=== PATIENT | female | born 1950 | race Caucasian/White ===

== ENCOUNTER 2023-04-17 12:15 | Emergency (ER) | payer MEDICARE, SELFPAY ==
[2023-04-17] VITALS (17 sets, daily range): BP systolic 124–164; BP diastolic 75–114; PULSE 76–144; RESP 16–23; TEMP 36.4; O2SAT 94–98; BMI 22.2
--- NOTE | 2023-04-17 12:25 | DI.RAD.S_ITS ---
PROCEDURE: XR CHEST 1V INDICATIONS: chest pain TECHNIQUE: One view of the chest was acquired. COMPARISON: None. FINDINGS: Surgical changes and devices: None. Lungs and pleura: Lungs are clear. No pleural effusions or pneumothorax. Mediastinum: Mediastinal contours appear normal. Heart size is normal. Tortuous aorta. Bones and chest wall: No suspicious bony lesions. Overlying soft tissues appear unremarkable. IMPRESSION: No acute radiographic abnormality on this single-view chest radiograph. Dictated by: Manpreet Ayala M.D. on 04/17/2023 at 12:55 Approved by: Manpreet Ayala M.D. on 04/17/2023 at 12:56
[2023-04-17 12:52] LABS: Add Manual Diff / Slide Review NO; Basophils Absolute Auto 0 /uL (0-100); Basophils Percent Auto 0.6 % (0-2); Eosinophils Absolute Auto 100 /uL (0-450); Eosinophils Percent Auto 1.5 % (2-4); Hematocrit 44.9 % (36-46); Hemoglobin 15.1 g/dL (12.0-16.0); Lymphocytes Absolute Auto 2100 /uL (1100-4500); Lymphocytes Percent Auto 28.7 % (25-40); Mean Corpuscular HGB Conc 33.6 % (30-36); Mean Corpuscular Volume 89.3 fL (80-100); Monocytes Absolute Auto 500 /uL (0-900); Monocytes Percent Auto 6.8 % (3-14); Neutrophils Absolute Auto 4500 /uL (1500-7000); Neutrophils Percent Auto 62.4 % (50-75); Platelet Count 228 X10^3/uL (150-400); Red Blood Cell Count 5.03 X10^6/uL (4.0-5.2); Red Cell Distribution Width 13.4 % (11.6-14.8); White Blood Cell Count 7.2 X10^3/uL (4.5-11.0)
[2023-04-17 13:03] LABS: Prothrombin Time 11.4 SECONDS (10.1-12.7)
[2023-04-17 13:05] LABS: PTT Partial Thromboplastin Tim 33 SECONDS (26-36)
[2023-04-17 13:16] LABS: Alanine Aminotransferase 21 IU/L (<35); Albumin 4.5 g/dL (3.5-5.0); Albumin Globulin Ratio 1.4 (1.0-2.8); Alkaline Phosphatase 83 U/L (38-126); Aspartate Aminotransferase 28 IU/L (14-36); BUN Creatinine Ratio 25.9 (6-22); Bilirubin Total 0.6 mg/dL (0.2-1.3); Blood Urea Nitrogen 22 mg/dL (7-17); Calcium 9.7 mg/dL (8.4-10.2); Carbon Dioxide 26 mmol/L (22-32); Chloride 104 mmol/L (98-107); Creatine Kinase 77 U/L (30-135); Estimated Glomerular Filt Rate > 60 mL/min (>60); Globulin 3.2 g/dL (1.7-4.1); Glucose 152 mg/dL (80-110); HEMOLYSIS < 15 (0-50); Lipase 55 U/L (23-300); Magnesium 2.4 mg/dL (1.6-2.3); Potassium 4.3 mmol/L (3.4-5.1); Sodium 139 mmol/L (137-145); Total Protein 7.7 g/dL (6.3-8.2)
[2023-04-17 13:28] LABS: Troponin I < 0.012 ng/mL (0.01-0.034)
--- NOTE | 2023-04-17 13:32 | ED_ITS ---
HPI - Arrhythmia/Palpitations General Chief Complaint: Arrhythmia/Palpitations Stated Complaint: Irregular heartbeat Time Seen by Provider: 04/17/23 13:30 Source: patient Mode of arrival: Ambulatory Related Data Allergies Allergy/AdvReac Type Severity Reaction Status Date / Time lisinopril [LISINOPRIL] Allergy Mild COUGH Unverified 11/19/17 12:31 Patient History Surgical History (Updated 12/09/17 @ 06:06 by Conversion Provider) Status post tubal ligation Social History Smoking Status: Never smoker Smoking Status: Never smoker alcohol intake frequency: a few times a week Substance Use Type: does not use Exam Initial Vital Signs Initial Vital Signs: Vital Signs Temperature 97.5 F L 04/17/23 12:22 Pulse Rate 77 04/17/23 12:22 Respiratory Rate 18 04/17/23 12:22 Blood Pressure 124/76 04/17/23 12:22 Pulse Oximetry 97 04/17/23 12:22 Oxygen Delivery Method Room Air 04/17/23 12:22 Course Orders Ordered: ED Orders 04/17/23 12:25 XR chest 1V Stat 04/17/23 12:35 Complete Blood Count AUTO DIFF Stat Comprehensive Metabolic Panel Stat Lipase Stat Magnesium Stat PTT Partial Thromboplastin Caden Stat Prothrombin Time INR Stat Troponin & CK Cardiac Panel Stat 04/17/23 12:50 EKG-12 Lead Stat Discontinued Medications Aspirin (Aspirin 81 Mg Chew Tab) 324 mg PO NOW ONE Stop: 04/17/23 12:26 Last Admin: 04/17/23 12:33 Dose: Not Given Documented By: KB Vital Signs Vital signs: Vital Signs - 8 hr 04/17/23 12:22 04/17/23 13:10 Temperature 97.5 F L Pulse Rate 77 134 H Respiratory Rate 18 16 Blood Pressure 124/76 134/89 Pulse Oximetry 97 98 Oxygen Delivery Method Room Air Room Air MDM - Arrhythmia/Palpitations Lab Data 04/17/23 12:35 04/17/23 12:35 Labs: Lab Results 04/17/23 04/17/23 04/17/23 Range/Units 12:35 12:35 12:35 WBC 7.2 (4.5-11.0) X10^3/uL RBC 5.03 (4.0-5.2) X10^6/uL Hgb 15.1 (12.0-16.0) g/dL Hct 44.9 (36-46) % MCV 89.3 (80-100) fL MCH 30.0 (26-34) PG MCHC 33.6 (30-36) % RDW 13.4 (11.6-14.8) % Plt Count 228 (150-400) X10^3/uL Neut % (Auto) 62.4 (50-75) % Lymph % (Auto) 28.7 (25-40) % [place] % (Auto) 6.8 (3-14) % Eos % (Auto) 1.5 L (2-4) % Baso % (Auto) 0.6 (0-2) % Neut # (Auto) 4500 (0486-8790) /uL Lymph # (Auto) 2100 (9473-3408) /uL [place] # (Auto) 500 (0-900) /uL Eos # (Auto) 100 (0-450) /uL Baso # (Auto) 0 (0-100) /uL PT 11.4 (10.1-12.7) SECONDS INR 1.0 (0.9-1.3) APTT 33 (26-36) SECONDS Sodium 139 (137-145) mmol/L Potassium 4.3 (3.4-5.1) mmol/L Chloride 104 (98-107) mmol/L Carbon Dioxide 26 (22-32) mmol/L BUN 22 H (7-17) mg/dL Creatinine 0.85 (0.52-1.04) mg/dL Estimated GFR > 60 (>60) mL/min BUN/Creatinine Ratio 25.9 H (6-22) Glucose 152 H (80-110) mg/dL Calcium 9.7 (8.4-10.2) mg/dL Magnesium 2.4 H (1.6-2.3) mg/dL Total Bilirubin 0.6 (0.2-1.3) mg/dL AST 28 (14-36) IU/L ALT 21 (<35) IU/L Alkaline Phosphatase 83 (38-126) U/L Total Creatine Kinase 77 (30-135) U/L Troponin I < 0.012 (0.01-0.034) ng/mL Total Protein 7.7 (6.3-8.2) g/dL Albumin 4.5 (3.5-5.0) g/dL Globulin 3.2 (1.7-4.1) g/dL Albumin/Globulin Ratio 1.4 (1.0-2.8) Lipase 55 (23-300) U/L Imaging Data Chest x-ray: Radiologist's Impresson: PROCEDURE:? XR CHEST 1V ? INDICATIONS:? chest pain ? TECHNIQUE:? One view of the chest was acquired.? ? COMPARISON:? None. ? FINDINGS:? ? Surgical changes and devices:? None.? ? Lungs and pleura:? Lungs are clear.? No pleural effusions or pneumothorax.? ? Mediastinum:? Mediastinal contours appear normal.? Heart size is normal.? Tortuous aorta. ? Bones and chest wall:? No suspicious bony lesions.? Overlying soft tissues appear unremarkable.? ? ? IMPRESSION:? No acute radiographic abnormality on this single-view chest radiograph.? ? Dictated by: Manpreet Ayala M.D. on 04/17/2023 at 12:55 ? ? Approved by: Manpreet Ayala M.D. on 04/17/2023 at 12:56 ?
--- NOTE | 2023-04-17 14:14 | ED.ARRPALP ---
HPI - Arrhythmia/Palpitations General Chief Complaint: Arrhythmia/Palpitations Stated Complaint: Irregular heartbeat Time Seen by Provider: 04/17/23 13:30 Source: patient Mode of arrival: Ambulatory Limitations: no limitations History of Present Illness HPI narrative: 73-year-old female with no daily medications who presents with complaint of irregular heartbeat. Patient states she sometimes feels that her heart rate is fast and irregular. She states it has been going on for possibly a year or longer she states she sometimes notices it more at nighttime. She states it is sort of noxious she is never followed it up. She would a physical today was found to be irregular and sent to the ER. She denies any chest pain no shortness of breath, no swelling in extremities, no syncope. No nausea no vomiting, no diarrhea constipation, no black bloody stools. Patient denies any dysuria urgency or frequency. States she does not take any daily medications. Remote history of tubal ligation. Has a remote history of being allergic to albuterol and lisinopril or having adverse reactions. No tobacco, she drinks a glass of wine nightly 5 times a week. No illicit, no recreational drugs. Patient's primary care is [facility]. Has never seen cardiology. Does have a brother with atrial fibrillation. Related Data Previous Rx's Medication Instructions Recorded dabigatran etexilate 150 mg 150 mg PO BID #60 caps 04/17/23 capsule (Pradaxa) diltiazem HCl 180 mg 180 mg PO DAILY #30 caps 04/17/23 capsule,extended release 24 hr (Cardizem CD) Allergies Allergy/AdvReac Type Severity Reaction Status Date / Time lisinopril [LISINOPRIL] Allergy Mild COUGH Verified 04/17/23 16:44 Review of Systems Review of Systems ROS Unobtainable: All systems reviewed & are unremarkable except as noted in HPI and below Patient History Surgical History Status post tubal ligation Social History Smoking Status: Never smoker Smoking Status: Never smoker alcohol intake frequency: a few times a week Substance Use Type: does not use Exam Narrative Exam Narrative: GENERAL: Alert and oriented x three, thin, well-appearing female in mild distress. HEENT: Head normocephalic, atraumatic, EOMI, pupils reactive, face symmetric, moist mucous membranes NECK: Supple, full range of motion CARDIOVASCULAR: Irregularly regular rate and rhythm without murmurs, rubs or gallops. No JVD. No swelling bilateral lower extremities. RESPIRATORY: Breath sounds equal bilaterally, no wheezes rales or rhonchi. No tachypnea or accessory muscle use. ABDOMEN: Soft, nontender. Normoactive bowel sounds all 4 quadrants. No guarding or rebound, rigidity, no mass : No CVA tenderness EXTREMITIES: Normal range of motion, no clubbing or edema. Neurovascularly intact NEUROLOGICAL: Cranial nerves II through XII grossly intact. Moving all extremities SKIN: Warm, dry, no petechiae, no rashes or lesions. Initial Vital Signs Initial Vital Signs: Vital Signs Temperature 97.5 F L 04/17/23 12:22 Pulse Rate 77 04/17/23 12:22 Respiratory Rate 18 04/17/23 12:22 Blood Pressure 124/76 04/17/23 12:22 Pulse Oximetry 97 04/17/23 12:22 Oxygen Delivery Method Room Air 04/17/23 12:22 Scores CHADS-VASc Congestive heart failure: no Hypertension: no Age 75 years or older: no Diabetes mellitus: no Stroke, TIA, or TE: no Vascular disease: no Age 65 to 74 years: yes Sex category (female): Female CHADS-VASc Score: 2 Course Orders Ordered: ED Orders 04/17/23 12:25 XR chest 1V Stat 04/17/23 12:35 BNP [NT-proBNP (BNP-Adult 18+)] Stat Complete Blood Count AUTO DIFF Stat Comprehensive Metabolic Panel Stat Lipase Stat Magnesium Stat PTT Partial Thromboplastin Caden Stat Prothrombin Time INR Stat TSH w/ Reflex to FT4 Stat Troponin & CK Cardiac Panel Stat 04/17/23 12:50 EKG-12 Lead Stat 04/17/23 15:42 EKG-12 Lead Stat Discontinued Medications Aspirin (Aspirin 81 Mg Chew Tab) 324 mg PO NOW ONE Stop: 04/17/23 12:26 Last Admin: 04/17/23 12:33 Dose: Not Given Documented By: JASON Dabigatran (Dabigatran 75 Mg Capsule) 150 mg PO NOW ONE Stop: 04/17/23 16:32 Last Admin: 04/17/23 16:44 Dose: 150 mg Documented By: JG Diltiazem HCl (Diltiazem 5 Mg/Ml Sdv) 10 mg IV NOW ONE Stop: 04/17/23 14:18 Last Admin: 04/17/23 14:32 Dose: 10 mg Documented By: JASON Diltiazem HCl (Diltiazem Cd 120 Mg Cap) 120 mg PO NOW ONE Stop: 04/17/23 15:14 Last Admin: 04/17/23 15:26 Dose: 120 mg Documented By: JASON(2) Sodium Chloride (Normal Saline 0.9%) 1,000 mls @ 1,000 mls/hr IV BOLUS ONE Stop: 04/17/23 15:16 Last Infusion: 04/17/23 16:04 Dose: 0 mls/hr Documented By: JASON(2) Admin: 04/17/23 14:32 Dose: 1,000 mls/hr Documented By: JASON Vital Signs Vital signs: Vital Signs - 8 hr 04/17/23 12:22 04/17/23 13:10 04/17/23 13:41 Temperature 97.5 F L Pulse Rate 77 134 H 129 H Respiratory Rate 18 16 20 Blood Pressure 124/76 134/89 Pulse Oximetry 97 98 97 Oxygen Delivery Method Room Air Room Air Room Air 04/17/23 13:42 04/17/23 13:42 04/17/23 14:00 Temperature Pulse Rate 126 H 136 H Respiratory Rate 18 21 Blood Pressure 136/75 Pulse Oximetry 97 97 Oxygen Delivery Method Room Air 04/17/23 14:30 04/17/23 14:38 04/17/23 14:38 Temperature Pulse Rate 76 144 H Respiratory Rate 16 19 Blood Pressure 141/108 H Pulse Oximetry 95 95 Oxygen Delivery Method 04/17/23 14:45 04/17/23 14:45 04/17/23 15:00 Temperature Pulse Rate 87 Respiratory Rate 21 Blood Pressure 126/89 137/89 Pulse Oximetry 94 Oxygen Delivery Method 04/17/23 15:00 04/17/23 15:15 04/17/23 15:15 Temperature Pulse Rate 80 84 Respiratory Rate 19 19 Blood Pressure 141/98 H Pulse Oximetry 95 97 Oxygen Delivery Method 04/17/23 15:30 04/17/23 15:30 04/17/23 15:45 Temperature Pulse Rate 87 Respiratory Rate 18 Blood Pressure 164/104 H 159/107 H Pulse Oximetry 97 Oxygen Delivery Method 04/17/23 15:45 04/17/23 16:00 04/17/23 16:01 Temperature Pulse Rate 105 H 125 H Respiratory Rate 22 23 Blood Pressure 158/104 H Pulse Oximetry 97 98 Oxygen Delivery Method 04/17/23 16:01 04/17/23 16:16 04/17/23 16:16 Temperature Pulse Rate 98 H 144 H Respiratory Rate 19 22 Blood Pressure 161/114 H Pulse Oximetry 97 97 Oxygen Delivery Method 04/17/23 16:30 04/17/23 16:30 04/17/23 16:46 Temperature Pulse Rate 130 H 114 H Respiratory Rate 19 20 Blood Pressure 162/96 H 148/93 H Pulse Oximetry 97 96 Oxygen Delivery Method Room Air MDM - Arrhythmia/Palpitations Lab Data 04/17/23 12:35 04/17/23 12:35 Labs: Lab Results 04/17/23 04/17/23 04/17/23 Range/Units 12:35 12:35 12:35 WBC 7.2 (4.5-11.0) X10^3/uL RBC 5.03 (4.0-5.2) X10^6/uL Hgb 15.1 (12.0-16.0) g/dL Hct 44.9 (36-46) % MCV 89.3 (80-100) fL MCH 30.0 (26-34) PG MCHC 33.6 (30-36) % RDW 13.4 (11.6-14.8) % Plt Count 228 (150-400) X10^3/uL Neut % (Auto) 62.4 (50-75) % Lymph % (Auto) 28.7 (25-40) % [place] % (Auto) 6.8 (3-14) % Eos % (Auto) 1.5 L (2-4) % Baso % (Auto) 0.6 (0-2) % Neut # (Auto) 4500 (7812-1100) /uL Lymph # (Auto) 2100 (3601-0524) /uL [place] # (Auto) 500 (0-900) /uL Eos # (Auto) 100 (0-450) /uL Baso # (Auto) 0 (0-100) /uL PT 11.4 (10.1-12.7) SECONDS INR 1.0 (0.9-1.3) APTT 33 (26-36) SECONDS Sodium 139 (137-145) mmol/L Potassium 4.3 (3.4-5.1) mmol/L Chloride 104 (98-107) mmol/L Carbon Dioxide 26 (22-32) mmol/L BUN 22 H (7-17) mg/dL Creatinine 0.85 (0.52-1.04) mg/dL Estimated GFR > 60 (>60) mL/min BUN/Creatinine Ratio 25.9 H (6-22) Glucose 152 H (80-110) mg/dL Calcium 9.7 (8.4-10.2) mg/dL Magnesium 2.4 H (1.6-2.3) mg/dL Total Bilirubin 0.6 (0.2-1.3) mg/dL AST 28 (14-36) IU/L ALT 21 (<35) IU/L Alkaline Phosphatase 83 (38-126) U/L Total Creatine Kinase 77 (30-135) U/L Troponin I < 0.012 (0.01-0.034) ng/mL NT-Pro-B Natriuret Pep (<125) pg/mL Total Protein 7.7 (6.3-8.2) g/dL Albumin 4.5 (3.5-5.0) g/dL Globulin 3.2 (1.7-4.1) g/dL Albumin/Globulin Ratio 1.4 (1.0-2.8) Lipase 55 (23-300) U/L TSH (0.47-4.68) uIU/mL 04/17/23 04/17/23 Range/Units 12:35 12:35 WBC (4.5-11.0) X10^3/uL RBC (4.0-5.2) X10^6/uL Hgb (12.0-16.0) g/dL Hct (36-46) % MCV (80-100) fL MCH (26-34) PG MCHC (30-36) % RDW (11.6-14.8) % Plt Count (150-400) X10^3/uL Neut % (Auto) (50-75) % Lymph % (Auto) (25-40) % [place] % (Auto) (3-14) % Eos % (Auto) (2-4) % Baso % (Auto) (0-2) % Neut # (Auto) (5442-0605) /uL Lymph # (Auto) (7815-2744) /uL [place] # (Auto) (0-900) /uL Eos # (Auto) (0-450) /uL Baso # (Auto) (0-100) /uL PT (10.1-12.7) SECONDS INR (0.9-1.3) APTT (26-36) SECONDS Sodium (137-145) mmol/L Potassium (3.4-5.1) mmol/L Chloride (98-107) mmol/L Carbon Dioxide (22-32) mmol/L BUN (7-17) mg/dL Creatinine (0.52-1.04) mg/dL Estimated GFR (>60) mL/min BUN/Creatinine Ratio (6-22) Glucose (80-110) mg/dL Calcium (8.4-10.2) mg/dL Magnesium (1.6-2.3) mg/dL Total Bilirubin (0.2-1.3) mg/dL AST (14-36) IU/L ALT (<35) IU/L Alkaline Phosphatase (38-126) U/L Total Creatine Kinase (30-135) U/L Troponin I (0.01-0.034) ng/mL NT-Pro-B Natriuret Pep 814 H (<125) pg/mL Total Protein (6.3-8.2) g/dL Albumin (3.5-5.0) g/dL Globulin (1.7-4.1) g/dL Albumin/Globulin Ratio (1.0-2.8) Lipase (23-300) U/L TSH 3.53 (0.47-4.68) uIU/mL Imaging Data Chest x-ray: Radiologist's Impresson: [address] [address] XRay Report Signed Patient: Trinity Martines MR#: [id number] : 1950 Acct:[id number] Age/Sex: 73 / F Date of Service: 04/17/23 Loc: ED Accession Number: [id number] ?? Procedure: XR chest 1V Ordering Provider: Sara Salvador D.O. PROCEDURE:? XR CHEST 1V ? INDICATIONS:? chest pain ? TECHNIQUE:? One view of the chest was acquired.? ? COMPARISON:? None. ? FINDINGS:? ? Surgical changes and devices:? None.? ? Lungs and pleura:? Lungs are clear.? No pleural effusions or pneumothorax.? ? Mediastinum:? Mediastinal contours appear normal.? Heart size is normal.? Tortuous aorta. ? Bones and chest wall:? No suspicious bony lesions.? Overlying soft tissues appear unremarkable.? ? ? IMPRESSION:? No acute radiographic abnormality on this single-view chest radiograph.? ? Dictated by: Manpreet Ayala M.D. on 04/17/2023 at 12:55 ? ? Approved by: Manpreet Ayala M.D. on 04/17/2023 at 12:56?? ECG Data Attestation: I personally reviewed and interpreted this ECG as follows: Prior ECG tracings: not available for review Interpretation: Atrial father rate of 147 QRS is 72 QTC of 510. No acute ST elevation depression noted. No priors for comparison. EKG 2. Rate of 86, possible atrial flutter does appear to have waves in leads 2 3 AVF. QRS is 86 QTC 435. Left axis deviation. No acute ST elevation depression noted. MDM Narrative Medical decision making narrative: 73-year-old female comes in with AFib RVR, occasionally has beats look atrial flutter but is quite irregular. Could be atrial flutter with variable AV block. Rate of 147 QRS of [address] elevation depression noted patient not have priors for comparison Patient's labs overall are appropriate, CBC, CMP, troponin are all negative no significant changes electrolytes other than magnesium is slightly elevated. Chest x-ray shows no acute change. Patient is describing longstanding atrial fib with RVR so she is not a candidate for cardioversion. Patient's TSH was sent she is quite thin with a BMI of 22 but no other hyperthyroid symptoms are reported. This is negative. CHADS-VASC score is 2. Patient is currently rate controlled after a dose of IV Cardizem and p.o. Cardizem 120 mg. Discussed with Cardiology, Dr. Taylor: Does recommend anticoagulation if she is rate controlled and asymptomatic could discharged home but would recommend that she be anticoagulated INR on medication daily. If symptomatic could transfer to [facility] for potential intervention. Discussed with patient. Patient elects to return home and not pursue admission or transfer. Discussed risks versus benefits with patient. Suspect she is had longstanding atrial fibrillation she is not having any end-organ damage perceivable today. She feels quite comfortable returning home. Patient was somewhat more rate controlled although her heart rate bounces all over the place. Patient is agreeable to anticoagulation discussed risks versus benefits of Coumadin, Pradaxa other options. Elects for Pradaxa given 1st dose here with prescription to fill this evening so she has not available tomorrow as well as oral Cardizem once daily. Discussed return precautions. Did give referral to Cardiology as I recommend she follow-up she does not perceive the fast heart rate at most of the time. Discharge Plan Departure Patient Disposition: Home Clinical Impression: Atrial flutter with rapid ventricular response Instructions: DI for Atrial Flutter Activity Restrictions/Additional Instructions: Please follow up with Cardiology for your cardiac arrhythmia, you appear to have atrial flutter with variable rate. It is recommended you follow-up with cardiology. Please call for an appointment. It is recommended that you stay for treatment of your heart rhythm but is you have elected to return home please take oral anticoagulant to prevent strokes until cleared by your physician. I would also recommend taking a medication to help control the rate or speed of your heart. Prescription sent to [facility] in [place]. Please return for new or worsening fast heart rate, persistently irregular, new chest pain, shortness of breath, new swelling in her extremities, lightheadedness or passing out, vomiting or other new or concerning changes. Prescriptions: New dabigatran etexilate [Pradaxa] 150 mg capsule 150 mg PO BID Qty: 60 0RF diltiazem HCl [Cardizem CD] 180 mg capsule,extended release 24hr 180 mg PO DAILY Qty: 30 0RF Referrals: Jacek An MD [Physician] - Stand Alone Forms: Patient Portal/API
[2023-04-17] MEDS: dilTIAZem 5 MG/ML SDV 10 MG IV (14:32)
[2023-04-17] MEDS: SODIUM CHLORIDE 0.9% 1,000 ML 1000 ML IV (14:32)
[2023-04-17 14:48] LABS: NT-proBNP (BNP-Adult 18+) 814 pg/mL (<125)
--- NOTE | 2023-04-17 15:00 | PC.NURSE ---
This RNs first interaction with patient @ 1500
[2023-04-17 15:23] LABS: TSH w/ Reflex to FT4 3.53 uIU/mL (0.47-4.68)
[2023-04-17] MEDS: dilTIAZem CD 120 MG CAP PO (15:26)
[2023-04-17] MEDS: DABIGATRAN 75 MG CAPSULE 150 MG PO (16:44)
== END 2023-04-17 16:56 | disposition home or self-care (01) ==
PROVIDERS: Emergency Provider Emergency Medicine
DX: I48.92 Unspecified atrial flutter (principal); R07.9 Chest pain, unspecified; Z79.01 Long term (current) use of anticoagulants
CPT/HCPCS: 36415; 71045; 80053; 82550; 83690; 83735; 83880; 84443; 84484; 85025; 85610; 85730; 93005; 93010; 96361; 96374; 99284

== ENCOUNTER → 2023-05-08 06:50 | Outpatient (CLI) | payer MEDICARE, SELFPAY ==
--- NOTE | 2023-05-08 | DI.ECHO.S_ITS ---
[place] [facility]---------+ [facility] +---------+ : : [address] : : : : [id number] : : : : Phone: [phone] Echocardiogram Report + + :Name: DARREN BRAVO Study Date: 05/08/2023 Height: 67 in : :[facility] ReadingLocation: Weight: 141 lb : : Gender: Female BSA: 1.7 m2 : :: 1950 Age: 73 yrs BP: 148/92 mmHg: :Reason For Study: Atrial Fibrillation with RVR : :Ordering Physician: DONALDO LAWS : :E Performed By: Robina José : :Referring: DONALDO LAWS E : + + Interpretation Summary The left ventricle is normal in size. Left ventricular systolic function appears normal without focal wall motion abnormalities. The ejection fraction is estimated to be 60-65%. Diastolic parameters suggest a relaxation abnormality of the left ventricle, consistent with probable normal filling pressures. The right ventricle is normal in size and function. The right ventricular systolic pressure is estimated to be at least 22 mmHg based on an estimated right atrial pressure of 3 mm Hg. The left atrium is borderline dilated. The right atrium is borderline dilated. There is no significant valvular heart disease. The aortic root is normal size. Procedure: A two-dimensional transthoracic echocardiogram with color flow and Doppler was performed. The study quality was technically adequate. There is no prior echocardiogram noted for this patient. The patient was in normal sinus rhythm during the exam. Left Ventricle: The left ventricle is normal in size. Left ventricular systolic function appears normal without focal wall motion abnormalities. The ejection fraction is estimated to be 60-65%. Diastolic parameters suggest a relaxation abnormality of the left ventricle, consistent with probable normal filling pressures. Right Ventricle: The right ventricle is normal in size and function. Atria: The left atrium is borderline dilated. The right atrium is borderline dilated. There is no Doppler evidence for an interatrial shunt. Mitral Valve: The mitral valve is normal. There is mild mitral annular calcification. There is no mitral valve stenosis. There is trace mitral regurgitation. Aortic Valve: The aortic valve is trileaflet. The aortic valve opens well. There is no aortic valve stenosis. No aortic regurgitation is present. Tricuspid Valve: The tricuspid valve is normal. There is no tricuspid stenosis. There is mild tricuspid regurgitation. The right ventricular systolic pressure is estimated to be at least 22 mmHg based on an estimated right atrial pressure of 3 mm Hg. Pulmonic Valve: The pulmonic valve leaflets are thin and pliable; valve motion is normal. There is no pulmonic valvular stenosis. There is trace pulmonic regurgitation. There is no significant valvular heart disease. Great Vessels: The aortic root is normal size. The ascending aorta is normal in size. The pulmonary artery is normal size. The IVC is of normal diameter and collapses greater than 50% with a sniff. This suggests a low right atrial pressure of 3 mm Hg. Pericardium/ Pleura There is no pericardial effusion. There is no pleural effusion. MMode/2D Measurements & Calculations LVIDd: 4.9 cm LVOT diam: 2.0 cm LVIDs: 3.4 cm Ao root diam: 3.0 cm FS: 30.6 % asc Aorta Diam: 3.3 cm EPSS: 0.50 cm IVSd: 0.90 cm LVPWd: 0.70 cm LV kern. diameter/BSA (cm/m^2): 2.8 LV sys. diameter/BSA (cm/m^2): 2.0 LA A2 area: 19.2 cm2 RA long axis: 5.4 cm LA A4 area: 17.3 cm2 RA area: 17.9 cm2 LA length (vol): 5.7 cm RA vol: 50.2 ml LA vol: 49.9 ml RA : 28.8 ml/m2 LA vol index: 28.6 ml/m2 RVD1 (basal): 3.4 cm LVLs ap4: 5.7 cm LVLd ap2: 6.7 cm TAPSE_phl: 2.4 cm LVLs ap2: 6.0 cm Doppler Measurements & Calculations Ao V2 max: 121.0 cm/sec LVOT Max Agus: 94.0 cm/sec Ao V2 mean: 81.6 cm/sec LV V1 max P.5 mmHg Ao max P.0 mmHg LV V1 VTI: 23.7 cm Ao mean P.0 mmHg SHARON(I,D): 2.5 cm2 Ao V2 VTI: 29.4 cm SHARON(V,D): 2.4 cm2 sev ratio: 0.81 SHARON indexed to BSA (cm^2/m^2): 1.5 MV E max agus: 60.3 cm/sec TR max agus: 216.0 cm/sec MV A max agus: 91.2 cm/sec TR max P.7 mmHg MV E/A: 0.66 PA V2 max: 82.6 cm/sec Med Peak E' Agus: 5.2 cm/sec PA V2 mean: 54.7 cm/sec E/E' med: 11.6 PA mean P.5 mmHg Lat Peak E' Agus: 9.1 cm/sec PA pr(Accel): 29.0 mmHg E/E' lat: 6.6 E/e' average: 9.1 MV dec time: 0.27 sec SV(LVOT): 74.6 ml AV VR_phl: 0.78 SHARON(VTI)/BSA_phl: 1.4 Reading Physician:05:56 PM
== END ==
PROVIDERS: PCP Family Medicine; Referring Provider Family Medicine; Visit Provider Family Medicine
DX: I48.91 Unspecified atrial fibrillation (principal); I34.81 Nonrheumatic mitral (valve) annulus calcification; I07.1 Rheumatic tricuspid insufficiency
CPT/HCPCS: 93306